=== PATIENT | female | born 1995 | race Caucasian/White ===

== ENCOUNTER 2017-04-27 10:48 | Emergency (ER) | payer OTHER ==
[~2017-04-27] VITALS: Ht 170.2 cm; Wt 59.9 kg
[~2017-04-27 10:48] MED LIST: CIPROFLOXACIN500 M1 PO
[2017-04-27] MEDS ORDERED: ROBINOL PO (10:57)
[2017-04-27] MEDS ORDERED: BACTRIM DS TAB1 EACH PO (11:11)
[2017-04-27 11:23] VITALS: BP 101/68
== END 2017-04-27 11:24 | disposition home or self-care (01) ==
LOC: ER 10:48
DX: L08.89 Other specified local infections of the skin and subcutaneous tissue (principal); F10.99 Alcohol use, unspecified with unspecified alcohol-induced disorder